=== PATIENT | male | born 1995 | race Caucasian/White ===

== ENCOUNTER 2019-04-06 08:58 | Emergency (ER) | payer OTHER ==
[~2019-04-06] VITALS: Ht 180.3 cm; Wt 74.8 kg
[2019-04-06 09:04] VITALS: BP 126/71
--- NOTE | 2019-04-06 09:30 | NUR ---
DR. GARDNER AT BEDSIDE.
== END 2019-04-06 09:51 | disposition home or self-care (01) ==
LOC: ER 09:03
DX: S05.8X2A Other injuries of left eye and orbit, initial encounter (principal); X58.XXXA Exposure to other specified factors, initial encounter; Y93.89 Activity, other specified; Y92.89 Other specified places as the place of occurrence of the external cause; Y99.8 Other external cause status